=== PATIENT | male | born 1990 | race Caucasian/White ===

== ENCOUNTER 2019-01-28 00:10 | Emergency (ER) | payer MEDICAID ==
[2019-01-28] MEDS: ONDANSETRON (ODT) 4 MG TAB ODT (00:31)
[2019-01-28] MEDS: HYDROCODONE/APAP (5/325) TAB PO (00:31)
== END 2019-01-28 01:44 | disposition home or self-care (01) ==
LOC: E/R 00:10
DX: R55 Syncope and collapse (principal)
CPT/HCPCS: 93005; 99283-25